=== PATIENT | female | born 1960 | race Caucasian/White ===

== ENCOUNTER 2016-11-08 05:23 | Observation (INO) | payer OTHER ==
[2016-11-06 09:49] VITALS: BMI 28.1
[2016-11-08] VITALS (16 sets, daily range): BP systolic 105–145; BP diastolic 61–87; PULSE 66–92; RESP 13–33; Ht 160 cm; Wt 71.1 kg
[~2016-11-08] VITALS: Ht 160 cm; Wt 71.1 kg
[2016-11-08] MEDS ORDERED: CEFAZOLIN 2 GM/50 ML (PMX) 50 ML IVPB ONE (06:30)
[2016-11-08] MEDS ORDERED: DEXTROSE 5%-LR 1,000 ML IV SCH (06:30)
[2016-11-08] MEDS ORDERED: LIDOCAINE 2%/EPI 30 ML INJ ONE ×2 (06:49→08:26)
[2016-11-08] MEDS ORDERED: SERT100T PO (06:50)
[2016-11-08] MEDS ORDERED: QUET25TA33 PO (06:50)
[2016-11-08] MEDS ORDERED: LAMO100T PO (06:50)
[2016-11-08] MEDS ORDERED: SULF1TAB31 PO (06:50)
[2016-11-08] MEDS ORDERED: GABA300C PO (06:50)
[2016-11-08] MEDS ORDERED: TRAM50TA2 PO (06:50)
[2016-11-08] MEDS ORDERED: CELE100C PO (06:56)
[2016-11-08] MEDS ORDERED: ALBU18HF INHALATION (06:56)
[2016-11-08] MEDS ORDERED: METF500T4 PO (06:56)
[2016-11-08] MEDS ORDERED: BECL8.7A5 INH (06:56)
[2016-11-08] MEDS ORDERED: SIMV40TA3 PO (06:56)
[2016-11-08] MEDS ORDERED: EST42.5C VAG (06:56)
[2016-11-08] MEDS ORDERED: THROMBIN 5000 UNIT VIAL ONE (06:58)
[2016-11-08] MEDS ORDERED: ONDANSETRON 4 MG INJ ONE (07:05)
[2016-11-08] MEDS ORDERED: PROPOFOL 20 ML ONE (07:05)
[2016-11-08] MEDS ORDERED: ROCURONIUM 50 MG INJ ONE (07:05)
[2016-11-08] MEDS ORDERED: FENTAnyl 50 MCG/ML VIAL ONE (07:05)
[2016-11-08] MEDS ORDERED: SUCCINYLCHOLINE CHLORIDE 100 MG/5 ML SYG IV ONE (07:05)
[2016-11-08] MEDS ORDERED: CEFAZOLIN 1 GM INJ ONE (07:06)
[2016-11-08] MEDS ORDERED: METOCLOPRAMIDE 10 MG INJ ONE (07:06)
--- NOTE | 2016-11-08 07:33 | HPN ---
Date/Time of Note Date/Time of Note DATE: 11/08/16 TIME: 07:32 Interval H&P Admission Note Pt. seen H&P reviewed: No system changes REINA WILLARD MD Nov 08, 2016 07:33
[2016-11-08] MEDS ORDERED: MEPERIDINE 25 MG INJ IV PRN (08:30)
[2016-11-08] MEDS ORDERED: hydrALAzine 20 MG INJ IV PRN (08:30)
[2016-11-08] MEDS ORDERED: HYDROmorphONE (0.2 MG/ML) 10ML SYG IV PRN ×3 (08:30)
[2016-11-08] MEDS ORDERED: LABETALOL HCL 20MG INJ IV PRN (08:30)
[2016-11-08] MEDS ORDERED: ONDANSETRON 4 MG INJ IV PRN (08:30)
[2016-11-08] MEDS ORDERED: FENTAnyl 50 MCG/ML VIAL IV PRN ×2 (08:30)
[2016-11-08] MEDS: LACTATED RINGER'S 1,000 ML IV SCH ×3 (09:46→23:31)
[2016-11-08] MEDS ORDERED: ACETAMINOPHEN/CODEINE #3 TAB PO PRN ×2 (10:00)
[2016-11-08] MEDS ORDERED: ZOLPIDEM 5 MG TAB PO PRN (10:00)
[2016-11-08] MEDS ORDERED: DIPHENHYDRAMINE 50 MG CAP PO PRN (10:00)
[2016-11-08] MEDS ORDERED: HYDROmorphONE 1 MG/ML SYG IV PRN (10:00)
[2016-11-08] MEDS: KETOROLAC 30 MG INJ IV SCH ×3 (10:14→21:05)
--- NOTE | 2016-11-08 10:20 | OPR ---
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
--- NOTE | 2016-11-08 11:42 | OPR ---
Date/Time of Note Date/Time of Note DATE: 11/08/16 TIME: 11:28 Operative Report Free Text/Dictation Procedure; The patient was placed in the lithotomy position after general anesthesia was given and she was examined under anesthesia findings were a very severe pelvic prolapse. The Jarvis catheter was placed in and the midline incision was made 2 cm below the urethral meatus. The incision was carried all the way from 2 cm below the urethral to the cervix Xylocaine 2% and epinephrine was injected to separate the bladder from the anterior vaginal mucosa. Dissection was carried out with Metzenbaum and with sharp dissection and blunt dissection the bladder was pursestring with 2-0 Vicryl suture. The points of the needle entrance for the obtryx sling were located and marked with a pen bilaterally the left side was entered first placing the needle through the obturator membrane 2 cm below the abductor longus tendon and the needle was retrieved periurethrally and the sling was attached to the needle the needle was pulled back and the string passed the obturator canal, the same thing was done on the other side and the sling was adjusted. A piece of accell graft and xenform graft was placed on the mid urethral area on the bottom of the sling and on the top part of the sling for protection. Surgicel was applied and Surgi-Miguel Angel was applied on the corners and the vagina was closed with interrupted sutures with 2-0 Vicryl and good hemostasis was achieved. A cystoscopy was done to assess the intactness of the bladder and he was found to be in good condition with no trauma with good flow through both ureters and intactness of the right of the bladder wall. The posterior repair was now started by making a triangular transverse incision over the perineum injection of Xylocaine and epinephrine was given up to about 7 cm up the vaginal canal. There is rectocele was pursestring also with 2-0 Vicryl pop off sutures, a trimming of the vaginal mucosa was done. The vaginal mucosa was closed with interrupted sutures with 2-0 Vicryl. The perineum was closed with a #0 Vicryl to the levator ani approximating and lifting the perineum. The rest of the perineum superficially was closed with 2-0 Vicryl and 3-0 Vicryl. The patient tolerated the procedure well and Xeroform gauze was left in the vagina, the sponge counts and instruments counts were correct and intravenous antibiotics were given for prophylaxis, blood loss was minimal and the urine was clear at the end of the procedure. 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
[2016-11-08] MEDS: METOCLOPRAMIDE 10 MG TAB PO SCH ×3 (12:00→23:30)
[2016-11-08] MEDS: PROVENTIL HFA 6.7GM INHALER INH SCH ×2 (12:00→16:00)
[2016-11-08] MEDS: CEFAZOLIN 1 GM/50 ML (PMX) 50 ML IVPB SCH ×2 (17:34→21:05)
[2016-11-08] MEDS ORDERED: metFORMIN 500 MG TAB PO SCH (21:00)
[2016-11-08] MEDS: GABAPENTIN 300 MG CAP PO SCH (21:05)
[2016-11-08] MEDS: LAMOTRIGINE 100 MG TAB PO SCH (21:05)
[2016-11-09] MEDS: KETOROLAC 30 MG INJ IV SCH ×4 (04:02→22:31)
[2016-11-09] MEDS: CEFAZOLIN 1 GM/50 ML (PMX) 50 ML IVPB SCH ×3 (05:44→22:31)
[2016-11-09] MEDS: METOCLOPRAMIDE 10 MG TAB PO SCH ×4 (05:44→23:56)
[2016-11-09 07:33] VITALS: BP 110/59; RESP 20
[2016-11-09 07:43] LABS: ADD SCAN DIFF NO
[2016-11-09 07:54] LABS: BASOPHILS % 0.1 % (0.0-2.0); EOSINOPHILS % 0.5 % (0.0-7.0); HEMATOCRIT 35.2 % (37.0-47.0); HEMOGLOBIN 11.2 g/dl (12.0-16.0); LYMPHOCYTES # 1.9 10^3/ul (0.8-2.9); LYMPHOCYTES % 23.6 % (15.0-51.0); MEAN CORPUSCULAR HEMOGLOBIN 27.4 pg (29.0-33.0); MEAN CORPUSCULAR HGB CONC 31.8 g/dl (32.0-37.0); MEAN CORPUSCULAR VOLUME 86.1 fl (82.0-101.0); MEAN PLATELET VOLUME 10.1 fl (7.4-10.4); MONOCYTE # 0.5 10^3/ul (0.3-0.9); MONOCYTES % 6.6 % (0.0-11.0); NEUTROPHIL # 5.6 10^3/ul (1.6-7.5); NEUTROPHILS % 69.1 % (39.0-77.0); PLATELET COUNT 247 10^3/UL (140-415); RED BLOOD COUNT 4.09 10^6/ul (4.20-5.40); RED CELL DISTRIBUTION WIDTH 13.1 % (11.5-14.5)
[2016-11-09 08:16] LABS: CREATININE 0.59 mg/dl (0.44-1.00); POTASSIUM 3.9 mmol/L (3.5-5.1)
[2016-11-09] MEDS: metFORMIN 500 MG TAB PO SCH ×2 (09:33→20:30)
[2016-11-09] MEDS: GABAPENTIN 300 MG CAP PO SCH ×2 (09:33→20:30)
[2016-11-09] MEDS: SERTRALINE 100 MG TAB PO SCH (09:33)
[2016-11-09] MEDS: LACTATED RINGER'S 1,000 ML IV SCH ×2 (09:45→18:20)
--- NOTE | 2016-11-09 11:10 | RADRPT ---
Vent Rate: 58 bpm RR Interval: 0 msec AR Interval: 132 msec QRS Duration: 86 msec QT Interval: 426 msec QTC Interval: 418 msec P-R-T [place]: 43 - 14 - 41 degrees Sinus bradycardia Otherwise normal ECG Electronically Signed By: Kyler Harris [id number]
[2016-11-09 19:41] VITALS: BP 119/58; RESP 20
[2016-11-09] MEDS: LAMOTRIGINE 100 MG TAB PO SCH (20:30)
--- NOTE | 2016-11-09 21:31 | PD.PPDC ---
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
--- NOTE | 2016-11-09 21:44 | DS ---
Date/Time of Note Date/Time of Note DATE: 11/10/16 Discharge Summary Admission/Discharge Info Admit Date/Time Nov 08, 2016 at 09:46 Discharge Date/Time 11/10/16 Discharge Diagnosis CYSTOURETHROCELE GRADE 3-4 MIXED IN CONTINENCE LARGE RECTOCELE GRADE 3-4 CONSTIPATION Patient Condition: Good Procedures ANTERIOR -POSTERIOR REPAIR OBTRYX SLING ACCELL GRAFT XENFORM GRAFT Hx of Present Illness 56 YEARS OLD FEMALE WITH PELVIC PROLAPSE GRADE 3-4 REFERRED TO ME BY PRIMARY DOCTOR FOR PROLAPSE. A-P REPAIR WAS DONE WITH SLING AND GRAFT. PATIENT WAS PLACED IN OBSERVATION FOR BLEEDING AND TO ASSESS CONTROL OF HER BLADDER AND BOWEL FUNCTION AND TO CONTROL HER PAIN WITH IV MEDS. A VAGINAL PACKING WAS REMOVED DRY AND SHE STARTED VOIDING WELL WITHOUT MAYOR RESIDUAL URINE. SHE WAS PASSING GASES. AFEBRILE. SHE WAS DISCHARGED HOME WITHOUT COMPLAINTS TO SEE ME IN OFFICE AT ANY TIME OR IN 10 DAYS. LABORATORY FINDINGS WERE REVIEWED. Hospital Course EXPECTED. Home Meds Reported Medications Beclomethasone Dip* (Qvar 80*) 7.3 Gm Inha, 2 PUFF INH BID, #1 INHALER 11/08/16 Estradiol* (Estrace* Vag) 0.01%-42.5GM Vaginal Cream..g., 1 APPLIC VAG, TUB 11/08/16 Celecoxib* (Celebrex*) 100 Mg Capsule, 100 MG PO BID, CAP 11/08/16 Simvastatin (Simvastatin) 40 Mg Tablet, 40 MG PO QHS, #30 TAB 11/08/16 Albuterol Sulfate* (Ventolin HFA*) 18 Gm Hfa.aer.ad, 2 PUFF INHALATION Q4H, #1 INHALER 11/08/16 Metformin Hcl* (Metformin Hcl*) 500 Mg Tablet, 500 MG PO BID, #30 TAB 11/08/16 Sertraline Hcl* (Zoloft*) 100 Mg Tablet, 100 MG PO DAILY, #30 TAB 11/08/16 Sulfamethoxazole/Trimethoprim* (Bactrim Ds* Tablet) 1 Each Tablet, 1 TAB PO BID , TAB 11/08/16 Lamotrigine* (Lamotrigine*) 100 Mg Tablet, 100 MG PO QHS, TAB 11/08/16 Quetiapine Fumarate* (Quetiapine Fumarate*) 25 Mg Tablet, 25 MG PO HS, TAB 11/08/16 Gabapentin* (Neurontin*) 300 Mg Capsule, 300 MG PO BID, #60 CAP 11/08/16 Tramadol HCl (Tramadol HCl) 50 Mg Tablet, 50 MG PO BID, #60 TAB 11/08/16 Primary Care Provider Not On Staff Doctor Time spent on discharge: < 30 minutes Pending Labs Laboratory Tests Test 11/09/16 07:10 11/09/16 09:42 11/09/16 11:54 11/09/16 17:17 White Blood Count 8.010^3/ul (4.8-10.8) Red Blood Count 4.0910^6/ul (4.20-5.40) Hemoglobin 11.2g/dl (12.0-16.0) Hematocrit 35.2% (37.0-47.0) Mean Corpuscular Volume 86.1fl (82.0-101.0) Mean Corpuscular Hemoglobin 27.4pg (29.0-33.0) Mean Corpuscular Hemoglobin Concent 31.8g/dl (32.0-37.0) Red Cell Distribution Width 13.1% (11.5-14.5) Platelet Count 92454^3/UL (140-415) Mean Platelet Volume 10.1fl (7.4-10.4) Neutrophils % 69.1% (39.0-77.0) Lymphocytes % 23.6% (15.0-51.0) Monocytes % 6.6% (0.0-11.0) Eosinophils % 0.5% (0.0-7.0) Basophils % 0.1% (0.0-2.0) Nucleated Red Blood Cells % 0.0/100WBC (0.0-0.0) Neutrophils # 5.610^3/ul (1.6-7.5) Lymphocytes # 1.910^3/ul (0.8-2.9) Monocytes # 0.510^3/ul (0.3-0.9) Eosinophils # 0.010^3/ul (0.0-0.5) Basophils # 0.010^3/ul (0.0-0.1) Nucleated Red Blood Cells # 0.010^3/ul (0.0-0.0) Sodium Level 141mmol/L (135-144) Potassium Level 3.9mmol/L (3.5-5.1) Chloride Level 100mmol/L (97-110) Carbon Dioxide Level 28mmol/L (21-31) Anion Gap 17 (8-16) Blood Urea Nitrogen 9mg/dl (7-20) Creatinine 0.59mg/dl (0.44-1.00) Bedside Glucose 185mg/dL (70-220) 125mg/dL (70-220) 178mg/dL (70-220) REINA WILLARD MD Nov 09, 2016 21:43
[2016-11-10 02:00] VITALS: BP_SYST 110; BP_SYST 99; BP_DIAS 55; BP_DIAS 59; RESP 18; RESP 20
[2016-11-10] MEDS: KETOROLAC 30 MG INJ IV SCH ×2 (05:15→10:35)
[2016-11-10] MEDS: METOCLOPRAMIDE 10 MG TAB PO SCH (05:15)
[2016-11-10] MEDS: CEFAZOLIN 1 GM/50 ML (PMX) 50 ML IVPB SCH (05:18)
[2016-11-10 07:45] VITALS: BP 106/62; RESP 18
[2016-11-10] MEDS: metFORMIN 500 MG TAB PO SCH (08:59)
[2016-11-10] MEDS: SERTRALINE 100 MG TAB PO SCH (08:59)
[2016-11-10] MEDS: GABAPENTIN 300 MG CAP PO SCH (08:59)
== END 2016-11-10 12:10 | disposition home or self-care (01) ==
LOC: SDS 05:23 → EDSTATUS 07:30 → SDS 09:46 → MS2 09:46 → UNDOFXSDCSVC 11:10 → SDS 11:10 → MS2 11:10 → UNDOFXSDCACCOM 11:10
PROVIDERS: ADMIT Obstetrics & Gynecology; ATTEND Obstetrics & Gynecology
DX: N81.10 Cystocele, unspecified (principal); N81.6 Rectocele; N39.46 Mixed incontinence; K59.00 Constipation, unspecified; I10 Essential (primary) hypertension; E11.9 Type 2 diabetes mellitus without complications; E78.5 Hyperlipidemia, unspecified
CPT/HCPCS: 57260; 80051; 82565; 82962; 84520; 85025; 87086; 88305; 93005; C1771; C1781; J0690; J1170; J1885; J2405; J2765; J3010; J7120; J7121; J7999; Q4166; Z7500; Z7512; Z7610; G0378

== ENCOUNTER → 2017-09-25 | Outpatient (CLI) | END | disposition home or self-care (01) ==

== ENCOUNTER → 2017-10-12 | Outpatient (CLI) | END | disposition home or self-care (01) ==

== ENCOUNTER → 2018-02-05 | Outpatient (CLI) | END | disposition home or self-care (01) ==

== ENCOUNTER → 2018-03-25 | Outpatient (CLI) | END | disposition home or self-care (01) ==

== ENCOUNTER 2018-03-27 11:22 | Day surgery (SDC) | END 2018-03-27 15:46 | disposition home or self-care (01) ==

== ENCOUNTER → 2018-04-08 | Outpatient (CLI) | END | disposition home or self-care (01) ==